=== PATIENT | female | born 1965 | race Caucasian/White ===

== ENCOUNTER 2017-03-31 03:07 | Emergency (ER) | payer OTHER ==
[~2017-03-31] VITALS: Ht 175.3 cm; Wt 74.8 kg
[2017-03-31] MEDS ORDERED: ASPIRIN 81 MG TAB.CHEW ONE (03:28)
[2017-03-31] MEDS ORDERED: HYDROmorphone PF 1 MG/ML DISP.SYRIN IV/SQ PRN (03:45)
[2017-03-31] MEDS ORDERED: NITROGLYCERIN SUBLINGUAL 0.4 MG BOTTLE OF 25. SL PRN (03:45)
[2017-03-31] MEDS ORDERED: 0.9 % SODIUM CHLORIDE 10 ML DISP.SYRIN. IV PRN (03:45)
[2017-03-31 03:49] LABS: BASO # 0.1 x10^3/uL (0.0-0.2); BASO % 1 % (0-3); EOS # 0.3 x10^3/uL (0.0-0.7); EOS % 3 % (0-3); HEMATOCRIT 41.5 % (36.0-47.0); HEMOGLOBIN 14.4 g/dL (12.0-15.5); LYMPH # 2.9 x10^3/uL (1.0-4.8); LYMPH % 28 % (24-48); MEAN CORPUSCULAR HEMOGLOBIN 31 pg (25-35); MEAN CORPUSCULAR HGB CONC 35 g/dL (31-37); MEAN CORPUSCULAR VOLUME 89 fL (79-100); MONO # 0.7 x10^3/uL (0.0-1.1); MONO % 7 % (0-9); NEUT # 6.3 x10^3uL (1.8-7.7); NEUT % 62 % (31-73); PLATELET COUNT 327 x10^3/uL (140-400); RED BLOOD COUNT 4.67 x10^6/uL (3.50-5.40); RED CELL DISTRIBUTION WIDTH 13.4 % (11.5-14.5); WHITE BLOOD COUNT 10.3 x10^3/uL (4.0-11.0)
--- NOTE | 2017-03-31 03:54 | PHYS DOC ---
Past History Past Medical History: Asthma, Fibromyalgia, GERD, Hypothyroid Additional Past Medical Histor: connective tissue disorder with high PIERCE Past Surgical History: , Hysterectomy, Tonsillectomy Smoking: Non-smoker Alcohol Use: Occasionally Drug Use: None Adult General Chief Complaint Chief Complaint: CHEST PAIN HPI HPI Patient is a pleasant 52-year-old female with a history of fibromyalgia, asthma , hypothyroidism and reflux who is been concerned with chest pain that began earlier today. While at work she began having chest discomfort in the right side of the chest with some radiation to the back and shoulder. She was eating dinner with friends tonight consuming some good food and wine which she began experiencing some "" severe reflux. She admits that she tried using a heating pad supportive medications to treat her symptoms to include Tylenol and a muscle relaxant without much improvement. While she was lying there about 2 in the morning the chest pain of her left chest began to get progressively more pressure-like. It radiated to the left shoulder or left arm described as a fullness. Patient's pain got actually better when she stood although the chest pain remained did not increase with exertion. Pain did get worse with chest wall movement and direct pressure over her left chest. She denies any breast tenderness, breast discharge, or change in skin which she did mention to the nursing staff that she had a mass that need to be evaluated. Patient admits to being mildly nauseous but no vomiting. Patient was mildly lightheaded without clear dizziness or vertigo. Patient denies any fevers, chills, cough, runny nose or congestion. Patient further denies any trauma or recent travel outside the country. She also denies any lower leg pain and swelling. Patient had an episode of chest pain 7 years ago with complete workup but this pain is more severe and localized to his left chest wall. Differential diagnosis for chest pain: Pericarditis, myocarditis, endocarditis, pneumothorax, pneumonia, aortic dissection, esophageal spasm, esophagitis, peptic ulcer disease, acute coronary syndrome, mediastinitis, Boerhaave syndrome , musculoskeletal chest wall pain, costochondritis, intercostal strain, rib fracture, pulmonary contusion, pneumonitis, pleural effusion, pericardial effusion, pericardial tamponode, and pleurisy. Was considered when the patient first arrived and EKG was done at bedside. Time of EKG with 3:14 AM 03/31/2017 read by me demonstrates sinus rhythm rate of 78 150 normal QRS width 72 which is normal QTC which is 4-5 which is normal patient has no ST segment or T-wave changes consistent with acute ischemia. Review of Systems Review of Systems Constitutional: Denies fever or chills [] Eyes: Denies change in visual acuity, redness, or eye pain [] HENT: Denies nasal congestion or sore throat [] Respiratory: Denies cough she did have some mild shortness of breath not improved with albuterol. Cardiovascular: No additional information not addressed in HPI [] GI: He did describe some reflux with mild nausea but no vomiting bloody stools or diarrhea. : Denies dysuria or hematuria [] Musculoskeletal: Denies back pain or joint pain [] Integument: Denies rash or skin lesions [] Neurologic: Denies headache, focal weakness or sensory changes [] Endocrine: Denies polyuria or polydipsia Psychologic Patient feels anxious and increasing stress while at work.[] Current Medications Current Medications Current Medications Medications (Trade) Dose Ordered Sig/Leo Start Time Stop Time Status Last Admin Dose Admin Aspirin (Children'S Aspirin) 81 mg STK-MED ONCE 03/31/17 03:28 03/31/17 03:29 MD Allergies Allergies Allergies Coded Allergies Type Severity Reaction Last Updated Verified No Known Drug Allergies 03/31/17 No Physical Exam Physical Exam Vital signs recorded on the chart patient within normal limits hypoxia and tachypnea or tachycardia Constitutional: Well developed, well nourished, no acute distress, non-toxic appearance. [] HENT: Normocephalic, atraumatic, bilateral external ears normal, oropharynx moist, no oral exudates, nose normal. [] Eyes: PERRLA, EOMI, conjunctiva normal, no discharge. [] Neck: Normal range of motion, no tenderness, supple, no stridor. [] Cardiovascular:Heart rate regular rhythm, no murmur gallops or rubs []patient does have some chest wall tenderness to palpation is reproduced over the left breast with no change in skin tone and color. Lungs & Thorax: Bilateral breath sounds clear to auscultation [] Abdomen: Bowel sounds normal, soft, no tenderness, no masses, no pulsatile masses. [] Skin: Warm, dry, no erythema, no rash. [] Extremities: No tenderness, no cyanosis, no clubbing, ROM intact, no edema. [] Neurologic: Alert and oriented X 3, normal motor function, normal sensory function, no focal deficits noted. [] Psychologic: Patient seems somewhat anxious almost on the verge of crying. Current Patient Data Lab Results Laboratory Tests Test 03/31/17 03:20 White Blood Count 10.3 x10^3/uL (4.0-11.0) Red Blood Count 4.67 x10^6/uL (3.50-5.40) Hemoglobin 14.4 g/dL (12.0-15.5) Hematocrit 41.5 % (36.0-47.0) Mean Corpuscular Volume 89 fL (79-100) Mean Corpuscular Hemoglobin 31 pg (25-35) Mean Corpuscular Hemoglobin Concent 35 g/dL (31-37) Red Cell Distribution Width 13.4 % (11.5-14.5) Platelet Count 327 x10^3/uL (140-400) Neutrophils (%) (Auto) 62 % (31-73) Lymphocytes (%) (Auto) 28 % (24-48) Monocytes (%) (Auto) 7 % (0-9) Eosinophils (%) (Auto) 3 % (0-3) Basophils (%) (Auto) 1 % (0-3) Neutrophils # (Auto) 6.3 x10^3uL (1.8-7.7) Lymphocytes # (Auto) 2.9 x10^3/uL (1.0-4.8) Monocytes # (Auto) 0.7 x10^3/uL (0.0-1.1) Eosinophils # (Auto) 0.3 x10^3/uL (0.0-0.7) Basophils # (Auto) 0.1 x10^3/uL (0.0-0.2) D-Dimer (Tracy) 0.36 mg/L (0.00-0.50) Sodium Level 140 mmol/L (136-145) Potassium Level 3.6 mmol/L (3.5-5.1) Chloride Level 105 mmol/L (98-107) Carbon Dioxide Level 26 mmol/L (21-32) Anion Gap 9 (6-14) Blood Urea Nitrogen 14 mg/dL (7-20) Creatinine 1.0 mg/dL (0.6-1.0) Estimated GFR (Cockcroft-Gault) 58.7 Glucose Level 94 mg/dL (70-99) Calcium Level 8.6 mg/dL (8.5-10.1) Magnesium Level 2.1 mg/dL (1.8-2.4) Total Bilirubin 0.9 mg/dL (0.2-1.0) Direct Bilirubin 0.2 mg/dL (0.0-0.2) Aspartate Amino Transferase (AST) 9 U/L (15-37) L Alanine Aminotransferase (ALT) 18 U/L (14-59) Alkaline Phosphatase 73 U/L (46-116) Creatine Kinase 73 U/L (26-192) Creatine Kinase MB (Mass) < 0.5 ng/mL (0.0-3.6) Creatine Kinase MB Relative Index 0.7 % (0-4) Troponin I Quantitative < 0.017 ng/mL (0-0.055) BQ-Mdx-Z-Type Natriuretic Peptide 50 pg/mL (0-124) Total Protein 7.4 g/dL (6.4-8.2) Albumin 4.0 g/dL (3.4-5.0) Lipase 350 U/L (73-393) EKG EKG [] Radiology/Procedures Radiology/Procedures []2 view chest x-ray PA and lateral read by me demonstrates no fracture, foreign body, pneumonia, pneumothorax, pneumomediastinum, no cardiomegaly, no subdiaphragmatic air. Course & Med Decision Making Course & Med Decision Making Pertinent Labs and Imaging studies reviewed. (See chart for details) patient presented with chest pain of unclear etiologyDifferential diagnosis for chest pain: Pericarditis, myocarditis, endocarditis, pneumothorax, pneumonia, aortic dissection, esophageal spasm, esophagitis, peptic ulcer disease, acute coronary syndrome, mediastinitis, Boerhaave syndrome, musculoskeletal chest wall pain, costochondritis, intercostal strain, rib fracture, pulmonary contusion, pneumonitis, pleural effusion, pericardial effusion, pericardial tamponode, and pleurisy. Was considered upon arrival giving EKG, chest x-ray, d-dimer troponin CMP and CBC. Patient also lipase to ensure this was not a pancreatic issue causing referred pain. Patient's d-dimer, troponin, EKG, chest x-ray were unremarkable, patient is resting quietly and comfortably without issue. Patient presents with chest pain of unclear etiology she does have some risk factors but based on her heart score which is 1 first factors patient is low risk and could go home. History: Highly suspicious 2 points moderately suspicious 1. slightly suspicious 0 point EKG: ST segment depression 2. nonspecific repolarization disturbance 1. normal 0 point Age: Greater than 65 2 points, 65-45 1., less than 45 years old 0 points Risk factors:> 3 risk factors 2 points, 1-2 risk factors one point, no risk factors 0 point Troponin: > 2 times normal 2 points, 1-2 times normal 1., normal limits 0 point Total score: Score % pts MACE/n MACE Policy 0-3 32% 1.9% 0.05% Discharge 4-6 51% 413/3136 13% 1.3% Observation Risk management 7-10 17% 518/1045 50% 2.8% Observation Treatment, CAG []Patient I discussed the fact that she could still have heart disease but no obvious signs of trauma to her heart today or injury to her cardiac muscle. Patient given precautions and asked return for any new or increasing symptoms or shows any question concerns. Specifically offered something for anxiety secondary to her increased stress at work and therefore she has about the mass in her left breast. She insists sure he has follow-up arranged. It does not want anything for her anxiety. Magi Disclaimer Magi Disclaimer This chart was dictated in whole or in part using Voice Recognition software in a busy, high-work load, and often noisy Emergency Department environment. It may contain unintended and wholly unrecognized errors or omissions. Departure Departure: Impression: Primary Impression: Chest pain made worse by breathing Additional Impression: Chest pain of uncertain etiology Disposition: 01 HOME, SELF-CARE Condition: STABLE Referrals: DAWN MCDANIELS MD Patient Instructions: Chest Pain (Nonspecific), Chest Wall Pain, Diet for Gastroesophageal Reflux Disease, Adult, Gastroesophageal Reflux Disease, Adult Additional Instructions: My discharge plan Although you have low risk chest pain you May still have heart disease despite having an apparent negative workup today. I would advise that you follow-up with your primary care doctor this week to arrange follow-up with her cryptozoologist. The cryptozoologist will help stratify your risk for heart injury in the future. Follow up: In addition patient is asked to followup with their primary doctor, within a week for followup examination and to address patient's ongoing medical conditions. Because patient does not have a regular medical doctor, the [facility] Resource Sheet will be provided to establish care primary care. Patient is advised that in the Emergency Department primary complaints are addressed and only in light of known signs and symptoms. Patient should return immediately to the emergency department if new signs and symptoms develop or patient's condition worsens in any way. At time of discharge patient was in stable condition and had verbalized understanding of the discharge instructions. Problem Qualifiers CHANDU AZEVEDO MD Mar 31, 2017 03:53
[2017-03-31] MEDS ORDERED: IV NORMAL SALINE 1,000ML 1,000 ML IV SCH (04:00)
[2017-03-31] MEDS ORDERED: LORazepam 2 MG/ML VIAL IV ONE (04:00)
[2017-03-31 04:09] LABS: ALK PHOS 73 U/L (46-116); ALT (SGPT) 18 U/L (14-59); ANION GAP 9 (6-14); AST (SGOT) 9 U/L (15-37); BLOOD UREA NITROGEN 14 mg/dL (7-20); CALCIUM 8.6 mg/dL (8.5-10.1); CARBON DIOXIDE 26 mmol/L (21-32); CHLORIDE 105 mmol/L (98-107); CREATINE KINASE 73 U/L (26-192); DIRECT BILIRUBIN 0.2 mg/dL (0.0-0.2); GFR 58.7; GLUCOSE 94 mg/dL (70-99); LIPASE 350 U/L (73-393); MAGNESIUM 2.1 mg/dL (1.8-2.4); POTASSIUM 3.6 mmol/L (3.5-5.1); SODIUM 140 mmol/L (136-145); TOTAL BILIRUBIN 0.9 mg/dL (0.2-1.0); TOTAL PROTEIN 7.4 g/dL (6.4-8.2)
[2017-03-31 04:40] VITALS: BP 114/54
--- NOTE | 2017-03-31 04:42 | EKG ---
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
--- NOTE | 2017-03-31 07:11 | RAD ---
Chest, 2 views, 03/31/2017: History: Chest pain Comparison is made to a study from 09/16/2009. The heart size and pulmonary vascularity are normal. No pulmonary infiltrates are seen. There is no evidence of pleural fluid. IMPRESSION: No acute cardiopulmonary abnormality is detected.
== END 2017-03-31 04:45 | disposition home or self-care (01) ==
LOC: ER 03:07
DX: R07.1 Chest pain on breathing (principal); E03.9 Hypothyroidism, unspecified; J45.909 Unspecified asthma, uncomplicated; K21.9 Gastro-esophageal reflux disease without esophagitis; M79.7 Fibromyalgia
CPT/HCPCS: 36415; 71020; 80048; 80076; 82553; 83690; 83735; 83880; 84443; 84484; 85025; 85379; 93005; 99285-25